=== PATIENT | female | born 1975 | race Caucasian/White ===

== ENCOUNTER 2021-05-21 23:02 | Emergency (ER) | payer OTHER, SELFPAY ==
[2021-05-21 23:02] VITALS: BP 111/85; PULSE 86; RESP 23; O2SAT 98
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
[2021-05-22] MEDS: HALOPERIDOL LACTATE 5 MG/ML VIAL IV PUSH (00:11)
[2021-05-22] MEDS: THIAMINE HCL 200 MG/2 ML VIAL 500 MG IV PUSH (00:11)
[2021-05-22 00:26] LABS: Basophils Absolute Auto 0.1 K/mm3 (0.0-0.1); Basophils Percent Auto 1.1 % (0.2-1.2); Eosinophils Percent Auto 0.4 % (0-4.4); Hematocrit 34.3 % (37.0-47.0); Hemoglobin 10.5 g/dL (12.0-15.0); Immature Granulocyte Absolute 0.01 K/mm3 (0.00-0.031); Immature Granulocyte Percent A 0.2 % (0-0.5); Lymphocytes Absolute Auto 1.39 K/mm3 (0.9-3.2); Lymphocytes Percent Auto 25.3 % (18.3-44.2); Mean Corpuscular HGB Conc 30.6 g/dl (32-36); Mean Corpuscular Hemoglobin 25.1 pg (26-34); Mean Corpuscular Volume 82.1 fl (80-100); Mean Platelet Volume 9.8 fl (7.4-10.4); Monocytes Absolute Auto 0.4 K/mm3 (0.1-0.6); Monocytes Percent Auto 6.6 % (2.6-8.5); Neutrophils Absolute Auto 3.7 K/mm3 (1.3-6.7); Neutrophils Percent Auto 66.4 % (45.5-73.1); Platelet Count Result 241 k/mm3 (150-375); Red Blood Count 4.18 M/mm3 (4.2-5.4); Red Cell Distribution Width 18.9 % (11.5-14.5); White Blood Count 5.5 K/mm3 (4.5-10.0)
[2021-05-22 01:10] LABS: Alanine Aminotransferase 38 U/L (4-35); Albumin Level 3.5 g/dL (3.5-5.1); Alkaline Phosphatase 216 U/L (38-126); Anion Gap 10 mmol/L (8-16); Aspartate Amino Transferase 57 U/L (14-36); Bilirubin,Total 0.1 mg/dL (0.2-1.3); Blood Urea Nitrogen 20 mg/dL (7-17); Calcium 7.8 mg/dL (8.4-10.2); Carbon Dioxide 20 mmol/L (22-30); Chloride 108 mmol/L (98-107); Estimated CRCL calculation 34 ml/min; Estimated Glomerular Filt Rate 40; Ethanol 285 mg/dL (<10); Glucose 83 mg/dL (65-110); Magnesium 1.9 mg/dL (1.6-2.3); Potassium 3.6 mmol/L (3.4-5.0); Sodium 138 mmol/L (137-145)
[2021-05-22 01:22] VITALS: BP 101/73; PULSE 67; RESP 14; O2SAT 98
[2021-05-22 02:51] VITALS: BP 110/82; PULSE 60; RESP 14; O2SAT 100
[2021-05-22 04:03] VITALS: BP 114/82; PULSE 51; RESP 13; O2SAT 100
[2021-05-22 05:48] VITALS: BP 123/84; PULSE 58; RESP 14; O2SAT 100
[2021-05-22 09:20] VITALS: BP 112/82; PULSE 78; RESP 18; O2SAT 99
--- NOTE | 2021-05-22 10:52 | PC.NURSE ---
patient provided 3 phone numbers to call for to patient up. this rn called all 3 numbers and each individual stated they were unwilling or unable to pick patient up
[2021-05-22 11:01] VITALS: BP 138/78; PULSE 80; RESP 20; O2SAT 99
== END 2021-05-22 11:03 | disposition home or self-care (01) ==
PROVIDERS: Emergency Provider Emergency Medicine
DX: F10.920 Alcohol use, unspecified with intoxication, uncomplicated (principal); Z88.2 Allergy status to sulfonamides; Y90.8 Blood alcohol level of 240 mg/100 ml or more
CPT/HCPCS: 36415; 80053; 80307; 83735; 84443; 85025; 96374; 96375; 99284; J1630; J3411